=== PATIENT | male | born 1985 | race African-American/Black ===

== ENCOUNTER 2024-06-05 12:39 | Emergency (ER) | payer MEDICAID, OTHER ==
[~2024-06-05] VITALS: Ht 188 cm; Wt 103.1 kg
[~2024-06-05 12:39] MED LIST: ALBU18HF2 INH; TAM75C PO
[2024-06-05] MEDS ORDERED: ketorolac trometh 30MG/ML vial 30 MG/ML VIAL IM ONE (14:30)
[2024-06-05] MEDS: ketorolac trometh 15mg/ml vial 15 MG/ML ML IM ONE (14:37)
[2024-06-05] MEDS ORDERED: CEPH-585 PO (14:50)
[2024-06-05] MEDS ORDERED: KEN0.1O TOP (14:50)
[2024-06-05 14:57] VITALS: BP 146/78; PULSE 65; RESP 16; TEMP 98.2; O2SAT 98
== END 2024-06-05 15:00 | disposition home or self-care (01) ==
LOC: ER 12:40
DX: L25.3 Unspecified contact dermatitis due to other chemical products (principal); J45.909 Unspecified asthma, uncomplicated; Z79.899 Other long term (current) drug therapy; Z56.0 Unemployment, unspecified; Z72.89 Other problems related to lifestyle
CPT/HCPCS: 96372; 99283; J1885